=== PATIENT | male | born 1970 | race Caucasian/White ===

== ENCOUNTER 2018-02-23 12:52 | Emergency (ER) | payer OTHER ==
[2018-02-23 13:12] VITALS: BP 128/76; PULSE 83; TEMP 98.2; BMI 24.3
--- NOTE | 2018-02-23 15:05 | PDOC ---
History of Present Illness - General Chief Complaint: Injury Stated Complaint: LACERATION Time Seen by Provider: 02/23/18 13:46 History Source: Patient - History of Present Illness Timing/Duration: reports: this afternoon Location: reports: face Past History - Past Medical History Allergies/Adverse Reactions: Allergies Allergy/AdvReac Type Severity Reaction Status Date / Time Penicillins Allergy Verified 02/23/18 13:08 Sulfa (Sulfonamide Allergy Verified 02/23/18 13:08 Antibiotics) Home Medications: Ambulatory Orders Alprazolam [Xanax] 1 mg PO ASDIR 02/23/18 Oxycodone HCl 15 mg PO ASDIR 02/23/18 COPD: No DVT: No Psychiatric Problems: Yes (ANXIETY) - Suicide/Smoking/Psychosocial Hx Smoking History: Former smoker Have you smoked in the past 12 months: No Number of Cigarettes Smoked Daily: 30 Information on smoking cessation initiated: No Hx Alcohol Use: No Drug/Substance Use Hx: Yes (MARIJUANA) Substance Use Type: Marijuana Review of Systems - Review of Systems Neurological: No: Headache, Dizziness *Physical Exam - Vital Signs Last Vital Signs Temp Pulse Resp BP Pulse Ox 98.2 F 83 16 128/76 98 02/23/18 13:09 02/23/18 13:09 02/23/18 13:09 02/23/18 13:09 02/23/18 13:09 - Physical Exam General Appearance: Yes: Appropriately Dressed. No: Apparent Distress HEENT: positive: Normal Voice Neck: positive: Supple Respiratory/Chest: negative: Respiratory Distress Integumentary: positive: Dry, Warm, Other (2 jagged lacerations to mid forehead , no facial swelling/deformity otherwise) Neurologic: positive: Fully Oriented, Alert, Normal Mood/Affect Procedures - Laceration/Wound Repair Face Wound Length: to 2.5 cm Wound Explored: clean Irrigated w/ Saline: Yes Betadine Prep: Yes Anesthesia: 1% Lidocaine Amount of Anesthetic (ccs): 8 Wound Repaired With: Sutures Suture Size/Type: 6:0, nylon Number of Sutures: 26 (1, ~1-1.2 cm deep lac repaired w/ 14 6-0 nylon, 2nd, 1c, lac repaired w/ 12 6-0 nylon) Sterile Dressing Applied: Yes Medical Decision Making - Medical Decision Making 02/23/18 15:02 47-year-old male, no significant history here with facial laceration. Patient states he slipped on oil at a bike shop today causing him to strike his head against metal garage door. No LOC, dizziness, nausea or vomiting. Only has some soreness to site per pt. Not on any blood thinners. States tetanus up-to- date. Patient well-appearing and stable with multiple forehead lacerations. 1,~ 1.5 jagged, deep lac that was sutured w/ 14 6-0 nylon, 2nd ~1cm superficial lac repaired w/ 12, 6-0 nylon. Wound check as needed in 48 hours *DC/Admit/Observation/Transfer Diagnosis at time of Disposition: Facial laceration Qualifiers: Encounter type: initial encounter Qualified Code(s): S01.81XA - Laceration without foreign body of other part of head, initial encounter - Discharge Dispostion Disposition: HOME Condition at time of disposition: Good - Referrals - Patient Instructions Printed Discharge Instructions: Laceration Repair Additional Instructions: Keep wound dry for the first 24 hours, then you can watch gently with mild soap and water to avoid crusting to suture knots. You can apply bacitracin or neosporin twice a day to area until sutures are removed. Return in 48 hrs for wound check as needed Sutures are removed in 5 days - Post Discharge Activity
== END 2018-02-23 15:03 | disposition home or self-care (01) ==
LOC: JERFT 12:52
PROC: 0JQ10ZZ Repair Face Subcutaneous Tissue and Fascia, Open Approach (ICD-10-PCS; principal; 2018-02-23)
DX: S01.81XA Laceration without foreign body of other part of head, initial encounter (principal); W01.0XXA Fall on same level from slipping, tripping and stumbling without subsequent striking against object, initial encounter; Y93.89 Activity, other specified; Y92.59 Other trade areas as the place of occurrence of the external cause; Y99.8 Other external cause status
CPT/HCPCS: 12011; 99281-25

== ENCOUNTER 2018-02-28 12:21 | Emergency (ER) | payer OTHER ==
[2018-02-28 12:28] VITALS: BP 132/88; PULSE 79; TEMP 98; BMI 27.2
--- NOTE | 2018-02-28 13:11 | PDOC ---
History of Present Illness - General Chief Complaint: Suture/Staple Removal(Here) Stated Complaint: SUTURE REMOVAL - History of Present Illness Initial Comments: 47-year-old male presents for evaluation of suture removal he's had no couple application since sutures were placed. 02/28/18 13:06 Past History - Past Medical History Allergies/Adverse Reactions: Allergies Allergy/AdvReac Type Severity Reaction Status Date / Time Penicillins Allergy Verified 02/28/18 12:24 Sulfa (Sulfonamide Allergy Verified 02/28/18 12:24 Antibiotics) Home Medications: Ambulatory Orders Alprazolam [Xanax] 1 mg PO ASDIR 02/23/18 Oxycodone HCl 15 mg PO ASDIR 02/23/18 COPD: No DVT: No Psychiatric Problems: Yes (ANXIETY) - Suicide/Smoking/Psychosocial Hx Smoking History: Former smoker Have you smoked in the past 12 months: No Number of Cigarettes Smoked Daily: 30 Information on smoking cessation initiated: Yes 'Breaking Loose' booklet given: 02/28/18 Hx Alcohol Use: No Drug/Substance Use Hx: Yes (MARIJUANA) Substance Use Type: Marijuana Review of Systems - Review of Systems All Other Systems: Reviewed and Negative *Physical Exam - Vital Signs Last Vital Signs Temp Pulse Resp BP Pulse Ox 98.0 F 79 18 132/88 100 02/28/18 12:24 02/28/18 12:24 02/28/18 12:24 02/28/18 12:24 02/28/18 12:24 - Physical Exam Comments: The lacerations at the middle of his forehead are healed and sutures are ready to be removed 02/28/18 13:06 Medical Decision Making - Medical Decision Making 02/28/18 13:06 the sutures were removed with an 11 blade 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 Did not go on any swimming pools sonorous her stay rooms. When the area is scarred you may submerge and water at that point. I've given you plastic surgery follow-up for further evaluation and treatment options. Follow up in the next 2-3 days. Stay out of the sun as well. When the area is scared, you MUST apply sunblock and protect the area from the sun. - Post Discharge Activity
== END 2018-02-28 13:22 | disposition home or self-care (01) ==
LOC: JERFT 12:21
DX: Z48.02 Encounter for removal of sutures (principal)
CPT/HCPCS: 99281-25

== ENCOUNTER 2018-12-12 18:35 | Emergency (ER) | payer OTHER ==
[2018-12-12 18:50] VITALS: BP 138/86; PULSE 70; TEMP 97.9; BMI 25.5
--- NOTE | 2018-12-12 18:50 | PDOC ---
History of Present Illness - General History Source: Patient Exam Limitations: No Limitations - History of Present Illness Initial Comments: 12/12/18 18:51 The patient is a 48 year old male, with a past medical history of elevated cholesterol (diet controlled) who presents to the emergency department with left lateral foot pain to s/p stepping off of a sidewalk and onto a crack. He states the lateral aspect of his left foot got caught in the crack as he continued to walk and he jumped to get the foot out of the crack. He denies ankle pain. he denies hearing a pop. He denies numbness or tingling. He denies prior injuries to the affected foot. The patient denies chest pain, shortness of breath, headache and dizziness. The patient denies fever, chills, nausea, vomit, diarrhea and constipation. The patient denies dysuria, frequency, urgency and hematuria. Allergies: penicillins, sulfa <Saskia Hill - Last Filed: 12/12/18 18:51> <Thom Melendrez - Last Filed: 12/12/18 18:58> - General Chief Complaint: Injury Stated Complaint: left ankle pain s/p twisted this afternoon.inju Time Seen by Provider: 12/12/18 18:45 Past History <Saskia Hill - Last Filed: 12/12/18 18:51> - Past Medical History COPD: No DVT: No Psychiatric Problems: Yes (ANXIETY) - Suicide/Smoking/Psychosocial Hx Smoking History: Current every day smoker Have you smoked in the past 12 months: No Number of Cigarettes Smoked Daily: 20 Information on smoking cessation initiated: Yes 'Breaking Loose' booklet given: 02/28/18 Hx Alcohol Use: No Drug/Substance Use Hx: Yes (weed) Substance Use Type: Marijuana <Thom Melendrez - Last Filed: 12/12/18 18:58> - Past Medical History Allergies/Adverse Reactions: Allergies Allergy/AdvReac Type Severity Reaction Status Date / Time Penicillins Allergy Verified 12/12/18 18:41 Sulfa (Sulfonamide Allergy Verified 12/12/18 18:41 Antibiotics) Home Medications: Ambulatory Orders Alprazolam [Xanax] 1 mg PO ASDIR 02/23/18 Oxycodone HCl 15 mg PO ASDIR 02/23/18 Review of Systems - Review of Systems Able to Perform ROS?: Yes Comments:: 12/12/18 18:53 CONSTITUTIONAL: Absent: fever, chills, diaphoresis, generalized weakness, malaise, loss of appetite HEENT: Absent: rhinorrhea, nasal congestion, throat pain, throat swelling, difficulty swallowing, mouth swelling, ear pain, eye pain, visual Changes CARDIOVASCULAR: Absent: chest pain, syncope, palpitations, irregular heart rate, lightheadedness , peripheral edema RESPIRATORY: Absent: cough, shortness of breath, dyspnea with exertion, orthopnea, wheezing, stridor, hemoptysis GASTROINTESTINAL: Absent: abdominal pain, abdominal distension, nausea, vomiting, diarrhea, constipation, melena, hematochezia GENITOURINARY: Absent: dysuria, frequency, urgency, hesitancy, hematuria, flank pain, genital pain MUSCULOSKELETAL: (+) left lateral foot pain. Absent: arthralgia, joint swelling SKIN: Absent: rash, itching, pallor HEMATOLOGIC/IMMUNOLOGIC: Absent: easy bleeding, easy bruising, lymphadenopathy, frequent infections ENDOCRINE: Absent: unexplained weight gain, unexplained weight loss, heat intolerance, cold intolerance NEUROLOGIC: Absent: headache, focal weakness or paresthesia, dizziness, unsteady gait, seizure, mental status changes, bladder or bowel incontinence PSYCHIATRIC: Absent: anxiety, depression, suicidal or homicidal ideation, hallucinations <Saskia Hill - Last Filed: 12/12/18 18:51> *Physical Exam - Vital Signs Last Vital Signs Temp Pulse Resp BP Pulse Ox 97.9 F 70 18 138/86 100 12/12/18 18:40 12/12/18 18:40 12/12/18 18:40 12/12/18 18:40 12/12/18 18:40 - Physical Exam Comments: 12/12/18 18:54 GENERAL: Well developed, well nourished. Awake and alert. No acute distress. HEENT: Normocephalic, atraumatic. PERRLA, EOMI. No conjunctival pallor. Sclera are non- icteric. Moist mucous membranes. Oropharynx is clear. NECK: Supple. Full ROM. No JVD. Carotid pulses 2+ and symmetric, without bruits. No thyromegaly. No lymphadenopathy. CARDIOVASCULAR: Regular rate and rhythm. Distal pulses are 2+ and symmetric. Normal range of motion at all joints. No bony deformities or tenderness. No CVA tenderness. EXTREMITIES: (+) Swelling ecchymosis and tenderness over base of the 5th metatarsal, lateral foot. No swelling or tenderness of the ankle or ankle ligaments. No tenderness of either malleolus. No cyanosis. No clubbing. No calf tenderness. SKIN: Warm and dry. Normal capillary refill. No rashes. No jaundice. NEUROLOGICAL: Alert, awake, appropriate. Cranial nerves 2-12 intact. No motor deficits in the upper extremities and lower extremities. Normoreflexic in the upper and lower extremities. Normal speech. gait unassesed secondary to pain. PSYCHIATRIC: Cooperative. Good eye contact. Appropriate mood and affect. <Saskia Hill - Last Filed: 12/12/18 18:51> - Vital Signs Last Vital Signs Temp Pulse Resp BP Pulse Ox 97.9 F 70 18 138/86 100 12/12/18 18:40 12/12/18 18:40 12/12/18 18:40 12/12/18 18:40 12/12/18 18:40 <Thom Melendrez - Last Filed: 12/12/18 18:58> Medical Decision Making - Medical Decision Making 12/12/18 18:57 Physical findings limited to foot- base 5th MT. <Thom Melendrez - Last Filed: 12/12/18 18:58> *DC/Admit/Observation/Transfer - Attestations Scribe Attestion: 12/12/18 18:55 Documentation prepared by Saskia Hill, acting as medical transcription radiology for Thom Evans MD <Saskia Hill - Last Filed: 12/12/18 18:51> <Thom Melendrez - Last Filed: 12/12/18 18:58> - Discharge Dispostion Condition at time of disposition: Stable - Referrals - Patient Instructions Printed Discharge Instructions: Smoking Cessation - Post Discharge Activity
--- NOTE | 2018-12-12 19:37 | PDOC ---
*Physical Exam - Vital Signs Last Vital Signs Temp Pulse Resp BP Pulse Ox 97.9 F 70 18 138/86 100 12/12/18 18:40 12/12/18 18:40 12/12/18 18:40 12/12/18 18:40 12/12/18 18:40 Progress Note - Progress Note Progress Note: Care of this patient was transferred to sc from Dr. Bishop at 1900 hrs. Patient is a 48-year-old male who injured his left foot/ankle. Patient has a x- ray of his foot scheduled as he has tenderness over the base of the fifth metatarsal. X-ray was read by radiologist was negative for any acute fracture, dislocation or pathology Given copy of his x-ray told to take his OxyContin that he is on for his hip, told to rest ice elevate and follow-up with his primary care doctor as needed *DC/Admit/Observation/Transfer Diagnosis at time of Disposition: Foot sprain Qualifiers: Encounter type: initial encounter Laterality: left Qualified Code(s): S93.602A - Unspecified sprain of left foot, initial encounter - Discharge Dispostion Disposition: HOME Condition at time of disposition: Stable Decision to Admit order: No - Referrals - Patient Instructions Printed Discharge Instructions: Smoking Cessation Additional Instructions: Continue pain medication as prescribed. Rest, ice, elevate, compression as discussed with . Return to the emergency department immediately with ANY new, persistent or worsening symptoms. Continue any medications as previously prescribed by your physician. You should follow up with your primary doctor as soon as possible regarding today's emergency department visit. . Please make sure your doctor reviews the results of your emergency evaluation. Thank you for coming to the Emergency Department today for your care. It was a pleasure to see you today. Please note that your evaluation is INCOMPLETE until you follow-up with your doctor. - Post Discharge Activity
[2018-12-12] MEDS ORDERED: Insulin (LOG) Aspart 100 UNITS/ML VIAL SQ STA (19:43)
== END 2018-12-12 19:37 | disposition home or self-care (01) ==
LOC: FER 18:35
DX: S93.602A Unspecified sprain of left foot, initial encounter (principal); W01.0XXA Fall on same level from slipping, tripping and stumbling without subsequent striking against object, initial encounter; Y93.89 Activity, other specified; Y92.410 Unspecified street and highway as the place of occurrence of the external cause; E78.00 Pure hypercholesterolemia, unspecified; F41.9 Anxiety disorder, unspecified; F17.210 Nicotine dependence, cigarettes, uncomplicated
CPT/HCPCS: 73630-TC-LT; 99283-25